=== PATIENT | female | born 1950 | race Caucasian/White ===

== ENCOUNTER 2016-11-09 13:23 | Emergency (ER) | payer OTHER, MEDICARE ==
[~2016-11-09 13:23] MED LIST: MOTRIN 400MG (400 MG PO
--- NOTE | 2016-11-09 14:14 | RADIOLOGY REPORT ---
EXAMINATION: XR SHOULDER, RIGHT CLINICAL INFORMATION: Right shoulder pain status post fall. COMPARISON: None. TECHNIQUE: 4 views of the right shoulder FINDINGS: There is an anterior glenohumeral dislocation. No definite evidence of acute fracture on these images. The acromioclavicular joint is intact. The visualized lung is clear. IMPRESSION: Anterior glenohumeral dislocation.
--- NOTE | 2016-11-09 14:54 | ED UPPER/LOWER EXTREMITY COMPL ---
History of Present Illness General Chief Complaint: Fall Stated Complaint: FALL/RT SHOULDER PAIN Source: patient Exam Limitations: no limitations Vital Signs & Intake/Output Vital Signs & Intake/Output Vital Signs Date Time Temp Pulse Resp B/P Pulse O2 O2 Flow FiO2 Ox Delivery Rate 11/09 1552 75 18 134/81 96 Room Air 11/09 1343 97.4 80 20 138/80 98 Allergies Coded Allergies: Sulfa (Sulfonamide Antibiotics) (Mild, HIVES 11/09/16) Reconcile Medications Ibuprofen 400 MG TABLET 1 TAB PO TID PAIN Tylenol With Codeine (Tylenol With Codeine #3 Tablet) 300 MG-30 MG TABLET 1-2 TAB PO Q6P PRN pain Triage Note: PT PRESENTS TO ER C/P FALL IN DRIVEWAY. PT STATES SHE SLIPPED IN THE SNOW AND FELL ONTO HER RIGHT SHOULDER. PT C/O OF PAIN WITH MOVEMENT. Triage Nurses Notes Reviewed? yes Onset: Abrupt Duration: minute(s):, constant Timing: single episode today Severity: moderate, severe Pain/Injury Location: Right: Shoulder. Method of Injury: fall No Modifying Factors: none HPI: 66-year-old female comes into emergency room for further evaluation of right shoulder pain which is been going on for the past few minutes after slipping and falling in the snowing coming down her right shoulder. Denies hitting her head. Pain to right shoulder. Denies any trauma anywhere else. Sharp pain. Patient was able to get up herself. Denies any other associated symptoms. (LIANA CROSS) Past History Travel History Traveled to [place] past 21 day No Medical History Any Pertinent Medical History? see below for history Neurological: NONE EENT: NONE Cardiovascular: NONE Respiratory: NONE Gastrointestinal: NONE Hepatic: NONE Renal: NONE Musculoskeletal: NONE Psychiatric: NONE Endocrine: NONE Surgical History Surgical History: non-contributory Psychosocial History What is your primary language Polish Tobacco Use: Never used Family History Hx Contributory? No (LIANA CROSS) Review of Systems Review of Systems Constitutional: Reports: no symptoms. EENTM: Reports: no symptoms. Respiratory: Reports: no symptoms. Cardiovascular: Reports: no symptoms. Gastrointestinal/Abdominal: Reports: no symptoms. Genitourinary: Reports: no symptoms. Musculoskeletal: Reports: see HPI. Skin: Reports: no symptoms. Neurological/Psychological: Reports: no symptoms. Hematologic/Endocrine: Reports: no symptoms. Immunological: Reports: no symptoms. All Other Systems: Reviewed and Negative (LIANA CROSS) Physical Exam Physical Exam General Appearance: well developed/nourished Head: atraumatic Eyes: Bilateral: normal appearance. Ears, Nose, Throat: normal ENT inspection, hearing grossly normal Neck: normal inspection Cardiovascular/Respiratory: no respiratory distress Back: normal inspection Shoulder Right: tenderness, limited range of motion Neurologic/Tendon: normal sensation, normal motor functions, normal tendon functions, responds to pain, no evidence tendon injury, no pulse deficit Skin: intact, normal color, warm/dry Lymphatic: no anterior cervical dennise (LIANA CROSS) Progress Differential Diagnosis: compartment syndrome, contusion, dislocation, fracture, septic arthritis, sprain, tendon injury Plan of Care: Orders Procedure Date/time Status Durable Medical Equipment 11/09 1519 Active Diagnostic Imaging: Viewed by Me: Radiology Read. Discussed w/RAD: Radiology Read. Radiology Impression: SERVICE DATE: 11/09/16 EXAM TYPE: RAD - XRY- SHOULDER COMPLETE-RIGHT EXAMINATION: XR SHOULDER, RIGHT CLINICAL INFORMATION: 66 -year-old woman post shoulder reduction. COMPARISON: 11/09/2016 shoulder radiographs TECHNIQUE: 2 views of the right shoulder were obtained. FINDINGS: There has been reduction of the patient's previously noted anterior shoulder dislocation, with essentially anatomic alignment. No acute fracture is identified. Mild degenerative changes are seen at the acromioclavicular joint. IMPRESSION: Anatomic alignment post reduction of an anterior shoulder dislocation. DICTATED BY: NAIF MATSON,BRODIE DATE/TIME DICTATED:11/09/161552, SERVICE DATE: 11/09/16 EXAM TYPE: RAD - XRY-SHOULDER COMPLETE-RIGHT EXAMINATION: XR SHOULDER, RIGHT CLINICAL INFORMATION: Right shoulder pain status post fall. COMPARISON: None. TECHNIQUE: 4 views of the right shoulder FINDINGS: There is an anterior glenohumeral dislocation. No definite evidence of acute fracture on these images. The acromioclavicular joint is intact. The visualized lung is clear. IMPRESSION: Anterior glenohumeral dislocation. DICTATED BY: NATALIE MATSON,GLORIA DATE/TIME DICTATED:11/09/16 1409 Comments: 11/09/2016 2:58:25 PM Patient medicated with Dilaudid and Valium. (LIANA CROSS) Departure Departure Disposition: HOME OR SELF CARE Condition: Stable Clinical Impression Primary Impression: Dislocation of right shoulder joint Referrals: PATIENT HAS NO PRIMARY CARE DR (PCP/Family) Additional Instructions: Follow-up with orthopedic doctor back in [place]. Rest. Stay in shoulder immobilizer. Return if any other concerns worsening symptoms. Please go over all results of today's visit with your primary care doctor. Contact your primary care doctor to let them know you were here in the emergency room. There may be nonspecific findings which may not be related to your visit today here in the emergency room but may require further evaluation and chronic monitoring by your primary care doctor. If you had a laceration today the chance of foreign body always remains. You should follow-up with your primary care doctor for recheck in 3-5 days for a wound check. If you had an x-ray done there is a chance that a fracture could have been missed on initial read and you should follow-up with your primary care doctor for repeat x-rays if symptoms persist. If your blood pressure was elevated here in the emergency room please have rechecked by her primary care doctor within the next 48 hours by your primary care doctor. If you were prescribed a narcotic here in the emergency room or any type of controlled substances you're not allowed to drive while taking this medication or operate any type of heavy machinery. Narcotics can make you feel lightheaded dizziness nausea and can cause constipation. You may need to bead picker a stool softener. Thank you for choosing [facility] emergency room. Please return to the emergency room immediately if you have any other concerns worsening of symptoms. Departure Forms: Customer Survey General Discharge Information Prescriptions: Current Visit Scripts Tylenol With Codeine (Tylenol With Codeine #3 Tablet) 1-2 TAB PO Q6P PRN pain #20 TAB (LIANA CROSS) PA/[facility] Co-Sign Statement Statement: ED Attending supervision documentation- [x] I saw and evaluated the patient. I have also reviewed all the pertinent lab results and diagnostic results. I agree with the findings and the plan of care as documented in the PA's/[facility]'s documentation. [] I have reviewed the ED Record and agree with the PA's/[facility]'s documentation. [] Additions or exceptions (if any) to the PAs/[facility]'s note and plan are summarized below: [] Shoulder reduced under my direct supervision (FRANCISCA GUSMAN DO) Procedures Splinting Location: RIGHT SHOULDER Manual Alignment Performed: No Pre-Made Type: SHOULDER IMMOBILIZER Splint Applied By: splint applied by me Pre-Proc Neuro Vasc Exam: normal Post-Proc Neuro Vasc Exam: normal Joint Reduction Joint Reduction Site: shoulder (R) Conscious Sedation: NO CONSCIOUS SEDATION Reduction Attempts: 2 Pre-Procedure NV Exam: Yes Post-Procedure NV Exam: Yes Post Joint Reduction Film: joint reduced (LIANA CROSS) Critical Care Note Critical Care Note Critical Care Time: 30-74 min (LIANA CROSS)
[2016-11-09 15:52] VITALS: BP 134/81
--- NOTE | 2016-11-09 15:57 | RADIOLOGY REPORT ---
EXAMINATION: XR SHOULDER, RIGHT CLINICAL INFORMATION: 66-year-old woman post shoulder reduction. COMPARISON: 11/09/2016 shoulder radiographs TECHNIQUE: 2 views of the right shoulder were obtained. FINDINGS: There has been reduction of the patient's previously noted anterior shoulder dislocation, with essentially anatomic alignment. No acute fracture is identified. Mild degenerative changes are seen at the acromioclavicular joint. IMPRESSION: Anatomic alignment post reduction of an anterior shoulder dislocation.
[2016-11-09] MEDS ORDERED: TYLENOL WITH C1 EACH PO (16:11)
== END 2016-11-09 16:35 ==
LOC: ERH 13:23
DX: S43.004A Unspecified dislocation of right shoulder joint, initial encounter (principal); W00.0XXA Fall on same level due to ice and snow, initial encounter
CPT/HCPCS: 73030-RT; 96374; 96375; J3360